=== PATIENT | female | born 1945 | race Caucasian/White ===

== ENCOUNTER 2017-05-02 14:31 | Emergency (ER) | payer OTHER ==
[~2017-05-02] VITALS: Ht 167.6 cm; Wt 73.0 kg
[~2017-05-02 14:31] MED LIST: ADULT LOW DOSE81 M1 PO; AMANTADINE100 M1 PO; ASPIR 8181 M1 PO; ATENOLOL; ATENOLOL25 M1 PO; AVENTYL,PAMELOR25 MG PO; B12; CHOLESTEROL MED; ENALAPRIL MALEAT5 MG PO; HYDROCHLOROTH12.5 M3 PO; HYDROCHLOROTHIA25 MG; HYDRODIURIL,O12.5 M2 PO; LIPITOR80 MG PO; LOVASTATIN20 MG PO; METRO CREAM 0.745 GM PO; METRO CREAM 0.745 GM TP; NORTRIPTYLINE H50 MG PO; PLAVIX75 MG PO; SYMMETREL100 M2 PO; Tenormin PO; Tylenol Regular Stre PO; VASOTEC; VASOTEC10 MG PO; VITAMIN B-12 IM; Vasotec PO; Vitamin B-12 PO; [UNRECOGNIZED DRUG - OTHER]
[2017-05-02 16:16] LABS: BASOPHIL (%) 0.4 % (0-1); BASOPHIL COUNT 0.1 K/uL (0-0.1); EOSINOPHIL (%) 1.1 % (0-5); EOSINOPHIL COUNT 0.1 K/uL (0-0.3); HEMATOCRIT 39.7 % (36.0-46.0); HEMOGLOBIN 13.2 G/DL (11.9-15.5); IMMATURE GRANULOCYTE (%) 1.4 % (0.0-0.7); LYMPHOCYTE (%) 15.3 % (15-42); LYMPHOCYTE COUNT 1.8 K/uL (1.0-2.8); MCH 29.9 PG (29.0-34.0); MCHC 33.2 G/DL (30.0-36.0); MONOCYTE (%) 8.2 % (3-12); NEUTROPHIL (%) 73.6 % (45-76); NEUTROPHIL COUNT 8.7 K/uL (1.8-6.4); PLATELET COUNT 247 K/uL (156-360); RBC DIS.WIDTH-CV 13.1 % (11.8-14.6); RBC DIS.WIDTH-SD 43.3 % (39-53); RED BLOOD COUNT 4.41 M/uL (3.80-5.20); WHITE BLOOD COUNT 11.8 K/uL (4.1-10.2)
[2017-05-02 16:27] LABS: CHLORIDE 99 mEq/L (99-109); POTASSIUM 3.5 mEq/L (3.7-5.4); SODIUM 138 mEq/L (136-147)
[2017-05-02 16:28] LABS: GLUCOSE 76 mg/dL (70-99)
[2017-05-02 16:32] LABS: CREATININE 1.2 mg/dL (0.6-1.3); GFR ESTIMATE (CALCULATED) 47 mL/min/
[2017-05-02 16:33] LABS: UREA NITROGEN (BUN) 25 mg/dL (9-23)
[2017-05-02 18:35] VITALS: BP 144/78
== END 2017-05-02 18:37 | disposition home or self-care (01) ==
LOC: EME 14:31
PROVIDERS: Physician Assistant
DX: L03.116 Cellulitis of left lower limb (principal); M79.605 Pain in left leg; I10 Essential (primary) hypertension; E78.5 Hyperlipidemia, unspecified; J45.909 Unspecified asthma, uncomplicated; Z95.5 Presence of coronary angioplasty implant and graft; Z88.5 Allergy status to narcotic agent
CPT/HCPCS: 80048; 83605; 85025; 87040; 93971; 99281; 99284; J0696